=== PATIENT | female | born 1955 | race Asian ===

== ENCOUNTER → 2021-07-04 | Outpatient (CLI) | payer MEDICARE, MEDICAID ==
[~2021-07-04] MED LIST: ASPI-1450 PO; MEMA5 PO; METO25 PO
[2021-07-04 12:06] VITALS: BP 177/96
== END | disposition home or self-care (01) ==
LOC: SRCNTR 10:34
PROVIDERS: ATTEND Internal Medicine
DX: I10 Essential (primary) hypertension (principal); E78.5 Hyperlipidemia, unspecified; F03.90 Unspecified dementia, unspecified severity, without behavioral disturbance, psychotic disturbance, mood disturbance, and anxiety
CPT/HCPCS: G0463; Z7500

== ENCOUNTER 2022-08-14 19:46 | Emergency (ER) | payer MEDICARE, MEDICAID | END 2022-08-14 20:30 | disposition left against medical advice (07) | LOC: EMS 20:15 | DX: Z53.21 Procedure and treatment not carried out due to patient leaving prior to being seen by health care provider (principal) ==

== ENCOUNTER 2023-08-12 10:19 | Emergency (ER) | payer MEDICARE, BC ==
[~2023-08-12] VITALS: Ht 157.5 cm; Wt 75.0 kg
[2023-08-12 10:25] VITALS: TEMP 98.3
[2023-08-12 11:05] LABS: APPEARANCE,URINE CLEAR (CLEAR); BILIRUBIN,URINE NEGATIVE (NEGATIVE); COLOR,URINE COLORLESS (YELLOW); GLUCOSE, URINE (UA) NEGATIVE (NEGATIVE); KETONES,URINE NEGATIVE (NEGATIVE); LEUKOCYTE ESTERASE ,URINE NEGATIVE (NEGATIVE); NITRATE,URINE NEGATIVE (NEGATIVE); OCCULT BLOOD,URINE SMALL (NEGATIVE); PH,URINE 5.5 (5.0-8.0); PROTEIN,URINE NEGATIVE (NEGATIVE); SPECIFIC GRAVITIY, URINE 1.008 (1.003-1.030); UROBILINOGEN,URINE <=1.0 mg/dL (<=1.0)
[2023-08-12 11:17] LABS: BACTERIA,URINE None Seen /HPF (None Seen); WBC,URINE None Seen /HPF (0-5)
[2023-08-12 11:18] LABS: BASOPHILS % (AUTO) 0.9 % (0.0-2.0); EOSINOPHILS % (AUTO) 4.5 % (1.0-6.0); HEMATOCRIT 38.4 % (36-46); HEMOGLOBIN 12.9 g/dL (12.0-16.0); LYMPHOCYTES # (AUTO) 1.9 K/uL (1.0-4.8); LYMPHOCYTES % (AUTO) 26.6 % (22.0-44.0); MEAN CORPUSCULAR HEMOGLOBIN 31.6 pg (26.0-34.0); MEAN CORPUSCULAR HGB CONC 33.6 G/dL (31.0-37.0); MEAN CORPUSCULAR VOLUME 94 fL (80-100); MONOCYTES # (AUTO) 0.6 K/uL (0.1-1.0); MONOCYTES % (AUTO) 8.9 % (2.0-9.0); NEUTROPHILS # (AUTO) 4.2 K/uL (1.8-7.7); NEUTROPHILS % (AUTO) 59.1 % (40.0-70.0); PLATELET COUNT (AUTO) 272 K/uL (150-450); RED BLOOD CELL COUNT(AUTO) 4.08 MIL/uL (4.00-5.20); RED CELL DISTRIBUTION WIDTH 12.6 % (11.5-14.5); WHITE BLOOD COUNT (AUTO) 7.1 K/uL (4.5-11.0)
[2023-08-12 11:18] LABS: RBC,URINE 0-2 /HPF (0-2)
[2023-08-12 11:22] LABS: ANION GAP 9 mmol/L (8-16); CALCIUM, TOTAL 8.6 mg/dL (8.8-10.5); CARBON DIOXIDE 28 mmol/L (22-29); CHLORIDE 102 mmol/L (98-107); CREATININE 0.85 mg/dL (0.60-1.30); GLOMERULAR FILTR. RATE CALC > 60 mL/min (>60); GLUCOSE,RANDOM 95 mg/dL (70-110); POTASSIUM 3.5 mmol/L (3.5-5.1); SODIUM SERUM 139 mmol/L (136-145); UREA NITROGEN, BLOOD 14 mg/dL (7-18)
[2023-08-12 11:29] LABS: LACTIC ACID 1.3 mmol/L (0.4-2.0)
[2023-08-12 11:31] LABS: TROPONIN I-HIGH SENSITIVITY 9 ng/L (<51)
[2023-08-12 11:36] LABS: ALANINE AMINOTRANSFERASE 22 U/L (12-78); ALBUMIN 3.5 g/dL (3.4-5.0); ALKALINE PHOSPHATASE 131 U/L (46-116); ASPARTATE AMINOTRANSFERASE 23 U/L (15-37); BILIRUBIN,TOTAL 0.8 mg/dL (0.1-1.0); LIPASE 31 U/L (16-77); TOTAL PROTEIN, SERUM 7.9 g/dL (6.4-8.2)
[2023-08-12 11:43] LABS: B-TYPE NATRIURETIC PEPTIDE 76 pg/mL (0-100)
[2023-08-12] MEDS ORDERED: MIRT-89 PO (12:12)
[2023-08-12] MEDS ORDERED: MEMA5 PO (12:12)
[2023-08-12] MEDS ORDERED: LORA-1000 PO (12:12)
[2023-08-12 12:15] VITALS: BP 150/86; PULSE 78; RESP 18
[2023-08-12] MEDS ORDERED: LORazepam 1 MG TABLET PO ONE (12:15)
== END 2023-08-12 12:33 | disposition home or self-care (01) ==
LOC: EMS 10:23
DX: F03.90 Unspecified dementia, unspecified severity, without behavioral disturbance, psychotic disturbance, mood disturbance, and anxiety (principal); F69 Unspecified disorder of adult personality and behavior; Z88.6 Allergy status to analgesic agent
CPT/HCPCS: 71045; 80053; 81001; 83605; 83690; 83880; 84484; 85025; 99284; 36415-L1; 36415-TC

== ENCOUNTER 2024-01-17 11:19 | Emergency (ER) | payer MEDICARE ==
[~2024-01-17 11:19] MED LIST changes: +LORA-1000 PO; -MEMA5 PO; +MEMA5TAB41 PO; +MIRT-89 PO
== END 2024-01-17 12:01 | disposition left against medical advice (07) ==
LOC: EMS 11:55
DX: Z53.21 Procedure and treatment not carried out due to patient leaving prior to being seen by health care provider (principal)

== ENCOUNTER 2024-01-19 11:49 | Inpatient (IN) | payer MEDICARE ==
[~2024-01-19] VITALS: Ht 147.3 cm; Wt 72.1 kg
[2024-01-19] MEDS ORDERED: ZOLPIDEM TARTRATE 10 MG TABLET PO PRN (13:15)
[2024-01-19] MEDS ORDERED: OLANZapine 5 MG RAPDIS TABLET PO PRN (13:15)
[2024-01-19] MEDS ORDERED: LORazepam 2 MG TABLET PO PRN (13:15)
[2024-01-19 13:34] LABS: BASOPHILS % (AUTO) 1.1 % (0.0-2.0); EOSINOPHILS % (AUTO) 5.3 % (1.0-6.0); HEMATOCRIT 40.3 % (36-46); HEMOGLOBIN 13.3 g/dL (12.0-16.0); LYMPHOCYTES # (AUTO) 1.6 K/uL (1.0-4.8); LYMPHOCYTES % (AUTO) 25.9 % (22.0-44.0); MEAN CORPUSCULAR HEMOGLOBIN 31.8 pg (26.0-34.0); MEAN CORPUSCULAR HGB CONC 32.9 G/dL (31.0-37.0); MEAN CORPUSCULAR VOLUME 97 fL (80-100); MONOCYTES # (AUTO) 0.5 K/uL (0.1-1.0); NEUTROPHILS # (AUTO) 3.6 K/uL (1.8-7.7); NEUTROPHILS % (AUTO) 59.7 % (40.0-70.0); PLATELET COUNT (AUTO) 227 K/uL (150-450); RED BLOOD CELL COUNT(AUTO) 4.16 MIL/uL (4.00-5.20); RED CELL DISTRIBUTION WIDTH 13.1 % (11.5-14.5); WHITE BLOOD COUNT (AUTO) 6.1 K/uL (4.5-11.0)
[2024-01-19 13:41] LABS: ANION GAP 9 mmol/L (8-16); CALCIUM, TOTAL 9.5 mg/dL (8.8-10.5); CARBON DIOXIDE 29 mmol/L (22-29); CHLORIDE 106 mmol/L (98-107); CREATININE 0.95 mg/dL (0.60-1.30); GLOMERULAR FILTR. RATE CALC 58 mL/min (>60); GLUCOSE,RANDOM 96 mg/dL (70-110); POTASSIUM 3.8 mmol/L (3.5-5.1); SODIUM SERUM 144 mmol/L (136-145); UREA NITROGEN, BLOOD 25 mg/dL (7-18)
[2024-01-19 13:43] LABS: ALCOHOL, BLOOD (SERUM) < 3 mg/dL (0-10)
[2024-01-19 13:49] LABS: ALANINE AMINOTRANSFERASE 21 U/L (12-78); ALBUMIN 3.9 g/dL (3.4-5.0); ALKALINE PHOSPHATASE 146 U/L (46-116); ASPARTATE AMINOTRANSFERASE 24 U/L (15-37); BILIRUBIN,TOTAL 0.9 mg/dL (0.1-1.0); TOTAL PROTEIN, SERUM 8.7 g/dL (6.4-8.2)
[2024-01-19 13:55] LABS: COVID AG,FIA SOURCE NASAL SWAB
[2024-01-19 14:17] LABS: SARS-COV2 (COVID) ANTIGEN,FIA Negative (Negative)
[2024-01-19] MEDS ORDERED: PROMETHAZINE HCL 25 MG TABLET PO PRN (17:30)
[2024-01-19] MEDS ORDERED: TUBERCULIN, PURIFIED PROTEIN DERIVATIVE 5 TU/0.1 ML SYRINGE ID ONE (17:30)
[2024-01-19] MEDS ORDERED: BREXPIPRAZOLE 1 MG TABLET PO PRN (17:30)
[2024-01-19] MEDS ORDERED: HydrOXYzine PAMOATE 50 MG CAPSULE PO PRN (17:30)
[2024-01-19] MEDS ORDERED: GuaiFENesin/D-METHORPHAN [SUGAR-FREE] 200-20MG/10 ML SYRUP UDCUP PO PRN (17:30)
[2024-01-19] MEDS ORDERED: LOPERAMIDE HCL 2 MG CAPSULE PO PRN (17:30)
[2024-01-19] MEDS ORDERED: MAG HYDROX/ALUMINUM HYD/SIMETH ES 30 ML SUSPENSION UDCUP PO PRN (17:30)
[2024-01-19] MEDS ORDERED: MAGNESIUM HYDROXIDE SUSPENSION 30 ML UDCUP PO PRN (17:30)
[2024-01-19] MEDS ORDERED: ACETAMINOPHEN 325 MG TABLET PO PRN (17:30)
[2024-01-19 18:51] VITALS: BP 152/74; PULSE 84; RESP 18; TEMP 97.3; O2SAT 94
[2024-01-19 20:24] VITALS: RESP 20
[2024-01-19] MEDS: MELATONIN 5 MG TABLET PO SCH (21:32)
[2024-01-19] MEDS: BREXPIPRAZOLE 1 MG TABLET PO SCH (21:39)
[2024-01-20 08:14] VITALS: BP 150/80; PULSE 70; RESP 17; TEMP 98.3; O2SAT 100
[2024-01-20 08:59] LABS: HEMOGLOBIN A1C 5.3 % (3.8-5.6)
[2024-01-20 09:17] LABS: CHOL/HDL RATIO 2.5 (3.9-5.7); FREE T4 (FREE THYROXINE) 1.4 ng/dL (0.76-1.46); THYROID STIMULATING HORMONE 1.36 uIU/mL (0.36-3.74)
[2024-01-20] MEDS: OMEGA-3/DHA/EPA/FISH OIL 1,000 MG CAPSULE PO SCH (09:25)
[2024-01-20] MEDS: THIAMINE 100 MG TABLET PO SCH (09:25)
[2024-01-20] MEDS: METOPROLOL SUCCINATE 25 MG ER TABLET PO SCH (09:25)
[2024-01-20] MEDS: FOLIC ACID 1 MG TABLET PO SCH (09:25)
[2024-01-20] MEDS: MULTIVITAMINS WITH MINERALS, THERAPEUTIC TABLET PO SCH (09:25)
[2024-01-20 16:57] VITALS: BP 177/80; PULSE 63
[2024-01-20] MEDS: AmLODIPine BESYLATE 5 MG TABLET PO SCH (18:02)
[2024-01-20] MEDS: LORazepam 0.5 MG TABLET PO PRN (20:04)
[2024-01-20 20:14] VITALS: BP 191/90; PULSE 65; RESP 18; TEMP 97.5; O2SAT 100
[2024-01-20 20:15] VITALS: BP 172/84; PULSE 62; RESP 18
[2024-01-20 21:15] VITALS: BP 160/81; PULSE 65; RESP 19; TEMP 97.5; O2SAT 99
[2024-01-20 22:50] VITALS: BP 189/73; PULSE 73; RESP 20; O2SAT 99
[2024-01-21 06:30] VITALS: BP 152/64; PULSE 61; RESP 18; TEMP 97.6; O2SAT 98
[2024-01-21] MEDS ORDERED: LISINOPRIL 20 MG TABLET PO PRN (06:45)
[2024-01-21 09:24] VITALS: BP 114/67; PULSE 61; RESP 18; TEMP 97.4; O2SAT 96
[2024-01-21 16:30] VITALS: BP 147/69; PULSE 72; RESP 18; TEMP 97.2; O2SAT 100
[2024-01-21 22:30] VITALS: BP 150/75; PULSE 72; RESP 16; TEMP 97.4; O2SAT 95
[2024-01-22 09:35] VITALS: BP 130/80; PULSE 65; RESP 17; TEMP 98; O2SAT 100
[2024-01-22] MEDS: MEMANTINE HCL 5 MG TABLET PO SCH (12:43)
[2024-01-22 16:30] VITALS: BP 152/86; PULSE 82; RESP 17; O2SAT 96
[2024-01-22 20:37] VITALS: RESP 16
[2024-01-23 08:45] VITALS: BP 138/89; PULSE 75; RESP 16; TEMP 97.7; O2SAT 100
[2024-01-23] MEDS: INFLUENZA VIRUS VACCINE QVS 2023-24 (6MO+)/PF 60 MCG/0.5 ML SYRINGE IM. ONE (14:30)
[2024-01-23 20:23] VITALS: BP 107/54; PULSE 88; RESP 20; TEMP 97.6; O2SAT 100
[2024-01-24 10:35] VITALS: BP 111/71; PULSE 76; RESP 16; TEMP 97.6; O2SAT 98
[2024-01-24 16:45] VITALS: BP 108/75; PULSE 72; RESP 16; O2SAT 100
[2024-01-24 20:12] VITALS: BP 107/75; PULSE 71; RESP 16; TEMP 97.8; O2SAT 100
[2024-01-25 08:41] VITALS: BP 119/64; PULSE 88; RESP 19; TEMP 97.5; O2SAT 98
[2024-01-25 16:01] VITALS: BP 124/68; PULSE 86; RESP 17; O2SAT 98
[2024-01-25 21:43] VITALS: BP 124/68; PULSE 92; RESP 18; TEMP 97.8; O2SAT 99
[2024-01-26 08:00] VITALS: BP 116/64; PULSE 77; RESP 15; TEMP 98; O2SAT 96
[2024-01-26 20:09] VITALS: BP 153/86; PULSE 99; RESP 20; TEMP 97.7; O2SAT 99
[2024-01-26] MEDS: BREXPIPRAZOLE 1 MG TABLET PO SCH (20:35)
[2024-01-27 09:11] VITALS: BP 130/77; PULSE 80; RESP 18; TEMP 98; O2SAT 100
[2024-01-27 16:28] VITALS: BP 113/66; RESP 18; O2SAT 100
[2024-01-27 23:20] VITALS: BP 134/78; PULSE 73; RESP 18; TEMP 97.5; O2SAT 100
[2024-01-28 08:21] VITALS: BP 131/60; PULSE 70; RESP 18; TEMP 97.8; O2SAT 100
[2024-01-28 20:08] VITALS: BP 147/69; PULSE 72; RESP 21; TEMP 97.7; O2SAT 100
[2024-01-28] MEDS: BREXPIPRAZOLE 1 MG TABLET PO SCH (21:25)
[2024-01-29 08:17] VITALS: BP 157/71; PULSE 78; RESP 20; TEMP 97.3; O2SAT 100
[2024-01-29 17:01] VITALS: BP 131/70; PULSE 75; RESP 16; TEMP 97.3; O2SAT 100
[2024-01-29 20:00] VITALS: BP 130/60; PULSE 72; RESP 18; TEMP 97.6; O2SAT 97
[2024-01-29] MEDS: ZOLPIDEM TARTRATE 5 MG TABLET PO PRN (23:45)
[2024-01-30 08:13] VITALS: BP 138/89; PULSE 97; RESP 20; TEMP 97.7; O2SAT 98
[2024-01-30 20:10] VITALS: BP 103/64; PULSE 66; TEMP 97.7
[2024-01-31 14:39] VITALS: BP 112/55; PULSE 63; RESP 18; TEMP 97; O2SAT 99
[2024-01-31 16:38] VITALS: BP 127/61; PULSE 71; RESP 18; TEMP 97.9; O2SAT 98
[2024-01-31 21:21] VITALS: BP 128/66; PULSE 86; RESP 18; TEMP 97.4; O2SAT 97
[2024-02-01 08:42] VITALS: BP 119/70; PULSE 73; RESP 18; TEMP 97.3; O2SAT 100
[2024-02-01 16:59] VITALS: BP 118/60
[2024-02-01 21:50] VITALS: BP 134/75; PULSE 64; RESP 18; TEMP 97.9; O2SAT 96
[2024-02-02 08:00] VITALS: BP 131/69; PULSE 79; RESP 20; TEMP 98.3; O2SAT 98
[2024-02-02 20:55] VITALS: BP 134/79; PULSE 89; RESP 16; O2SAT 96
[2024-02-03 08:21] VITALS: BP 120/64; PULSE 70; RESP 17; TEMP 97.3; O2SAT 98
[2024-02-03 20:13] VITALS: BP 129/78; PULSE 73; RESP 18; TEMP 97.3; O2SAT 100
[2024-02-04 17:34] VITALS: BP 141/76; PULSE 73; RESP 18; O2SAT 100
[2024-02-04] MEDS: BREXPIPRAZOLE 1 MG TABLET PO SCH (20:27)
[2024-02-04 21:30] VITALS: BP 150/80; PULSE 76; RESP 18; TEMP 98; O2SAT 96
[2024-02-05 08:15] VITALS: BP 135/79; PULSE 85; RESP 18; TEMP 97.9; O2SAT 97
[2024-02-05] MEDS ORDERED: OMEG-135 PO (14:44)
[2024-02-05] MEDS ORDERED: MELA5TAB40 PO (14:44)
[2024-02-05] MEDS ORDERED: BREX1TAB PO (14:44)
[2024-02-05] MEDS ORDERED: MEMA5TAB41 PO (14:44)
[2024-02-05 21:42] VITALS: BP 140/70; PULSE 88; RESP 18; TEMP 97.7; O2SAT 93
[2024-02-06 09:15] VITALS: BP 128/65; PULSE 80; RESP 17; TEMP 97.9; O2SAT 100
[2024-02-07] MEDS ORDERED: BREXPIPRAZOLE 2 MG TABLET PO SCH (21:00)
== END 2024-02-06 14:56 | disposition home or self-care (01) | DRG 885 ==
LOC: EMS 12:45 → B2X 16:35 → B2S 01-21 09:00
PROVIDERS: ADMIT Psychiatry & Neurology Psychiatry; ATTEND Psychiatry & Neurology Psychiatry
PROC: GZHZZZZ Group Psychotherapy (ICD-10-PCS; principal; 2024-01-19)
PROC: GZ51ZZZ Individual Psychotherapy, Behavioral (ICD-10-PCS; 2024-01-19)
DX: F25.9 Schizoaffective disorder, unspecified (principal); Z59.01 Sheltered homelessness; F31.9 Bipolar disorder, unspecified; F03.90 Unspecified dementia, unspecified severity, without behavioral disturbance, psychotic disturbance, mood disturbance, and anxiety; Z20.822 Contact with and (suspected) exposure to COVID-19; F41.9 Anxiety disorder, unspecified; Z91.148 Patient's other noncompliance with medication regimen for other reason; Z88.6 Allergy status to analgesic agent; Z79.899 Other long term (current) drug therapy
CPT/HCPCS: 80053; 80061; 83036; 84439; 84443; 85025; 86592; 93005; G0480; Q9967

== ENCOUNTER 2024-01-21 01:56 | Emergency (ER) | payer MEDICARE ==
[~2024-01-21] VITALS: Ht 160 cm; Wt 59.1 kg
[2024-01-21 02:13] VITALS: BP 168/75; PULSE 70; RESP 17; TEMP 97.7
[2024-01-21 03:02] LABS: ANION GAP 6 mmol/L (8-16); CALCIUM, TOTAL 9.4 mg/dL (8.8-10.5); CARBON DIOXIDE 28 mmol/L (22-29); CHLORIDE 103 mmol/L (98-107); GLOMERULAR FILTR. RATE CALC > 60 mL/min (>60); GLUCOSE,RANDOM 95 mg/dL (70-110); POTASSIUM 3.7 mmol/L (3.5-5.1); SODIUM SERUM 137 mmol/L (136-145); UREA NITROGEN, BLOOD 20 mg/dL (7-18)
[2024-01-21 03:11] LABS: ALANINE AMINOTRANSFERASE 20 U/L (12-78); ALBUMIN 3.5 g/dL (3.4-5.0); ALKALINE PHOSPHATASE 127 U/L (46-116); ASPARTATE AMINOTRANSFERASE 25 U/L (15-37)
[2024-01-21 03:13] LABS: TROPONIN I-HIGH SENSITIVITY 11 ng/L (<51)
[2024-01-21 03:51] LABS: BASOPHILS % (AUTO) 0.8 % (0.0-2.0); EOSINOPHILS % (AUTO) 4.6 % (1.0-6.0); HEMATOCRIT 38.1 % (36-46); HEMOGLOBIN 12.7 g/dL (12.0-16.0); LYMPHOCYTES # (AUTO) 1.8 K/uL (1.0-4.8); LYMPHOCYTES % (AUTO) 22.2 % (22.0-44.0); MEAN CORPUSCULAR HEMOGLOBIN 31.6 pg (26.0-34.0); MEAN CORPUSCULAR HGB CONC 33.4 G/dL (31.0-37.0); MEAN CORPUSCULAR VOLUME 95 fL (80-100); MONOCYTES # (AUTO) 0.7 K/uL (0.1-1.0); MONOCYTES % (AUTO) 8.5 % (2.0-9.0); NEUTROPHILS # (AUTO) 5.1 K/uL (1.8-7.7); NEUTROPHILS % (AUTO) 63.9 % (40.0-70.0); PLATELET COUNT (AUTO) 234 K/uL (150-450); RED BLOOD CELL COUNT(AUTO) 4.03 MIL/uL (4.00-5.20); RED CELL DISTRIBUTION WIDTH 12.8 % (11.5-14.5)
== END 2024-01-21 05:58 | disposition admitted as inpatient to this hospital (09) ==
LOC: EMS 01:56
DX: I49.1 Atrial premature depolarization (principal); F03.90 Unspecified dementia, unspecified severity, without behavioral disturbance, psychotic disturbance, mood disturbance, and anxiety; Z88.6 Allergy status to analgesic agent; Z88.5 Allergy status to narcotic agent
CPT/HCPCS: 80053; 83735; 84484; 85025; 93005; 99285